=== PATIENT | female | born 1995 | race Caucasian/White ===

== ENCOUNTER 2018-10-23 16:14 | Emergency (ER) | payer BC ==
[~2018-10-23] VITALS: Ht 165.1 cm; Wt 74.8 kg
--- OUTSIDE RECORDS SUMMARY | 2018-10-23 16:16 | XMS REPORT | Encounter Summary ---
Author Organization Unknown Address [address] [place] [address] Phone [phone] Reason for Visit Medical Complaint Instructions 1. Common cold rapid strep group A, throat rapid flu (A+B) benzonatate 200 mg capsule Xyzal 5 mg tablet Discussion Note: None recorded. Patient educational handouts: No information available. Plan of Care Patient Instructions Start on Flonase 2 sprays each nostril daily x 5 days. If symptoms do not improve in 3-4days follow with fever, call clinic or see pcp. Reminders Provider Appointments None recorded. Lab Rapid Strep Group a, Throat 07/22/2016 [facility] Rapid Flu (A+B) 07/22/2016 [facility] Referral None recorded. Procedures None recorded. Surgeries None recorded. Imaging None recorded. Medications Name Start Date benzonatate 200 mg capsule Take 1 capsule 3 times a day by oral route as needed for cough. Implanon Xyzal 5 mg tablet Take 1 tablet every day by oral route at bedtime for drainage. Medications Administered None recorded. Vitals Height Weight BMI Blood Pressure 5 ft 6 in 166 lbs 26.8 110/60 Lab Results Date Name Result Description Value Range Status Rapid Strep Group a, Throat Result negative Swab Location Left and Right tonsillar pillars Rapid Flu (A+B) Influenza a negative Influenza B negative Allergies Name Reaction Severity Onset NKDA Problems Name Status Onset Date Source Common Cold Active Encounter Procedures None recorded. Vaccine List None recorded. Social History Smoking Status Never Smoker Past Encounters 07/22/2016 Common Cold Yasemin Branch, [employer]: [address] [place] [address], Ph. History of Present Illness Throat-Oral Complaint Reported By: Patient HPI: Location: throat. Quality: sore throat, congested, dry or hacking cough. Severity: moderate. Duration: 2 days. Onset/Timing: sudden. Context: no sick contacts, no foreign travel, non-smoker, allergies. Modifying factors: OTC medication. Associated Symptoms: no sputum production, no shortness of breath, no wheezing, no change in number of pillows needed to sleep at night, no sweats, no significant weight gain, no significant weight loss, no morning cough, no sore throat, no vomiting, no diarrhea, no rash, no nausea Review of Systems Basic Reported By: Patient Constitutional: Constitutional: no fever Eyes: Eyes: no eye complaints Ytye-Dtno-Ridpz-Throat: Ears: ear pain. Nose: nose/sinus problems. Mouth/Throat: no bleeding gums, no mouth complaints, no teeth problems, sore throat Cardiovascular: Cardiovascular: no chest pain, no shortness of breath, no known heart murmur Respiratory: Respiratory: no wheezing, no shortness of breath, cough Gastrointestinal: Gastrointestinal: no abdominal pain, no vomiting / diarrhea Genitourinary: Genitourinary: no urinary complaints, no discharge Musculoskeletal: Musculoskeletal: no muscle aches, no muscle weakness, no arthralgias/joint pain, no back pain Skin: Skin: no abnormal / changing mole, no jaundice, no rashes Neurologic: Neurologic: no loss of consciousness, no weakness, no numbness, no seizures, no dizziness, no headaches Physical Exam Adult Basic, Adult Female Complete, 14-21 Yr Females Constitutional: General Appearance: healthy-appearing, well-nourished, well-developed, overweight. Level of Distress: NAD. Ambulation: ambulating normally Psychiatric: Mental Status: active and alert, normal affect, normal mood. Orientation: to time, to place, to person Eyes: Lids and Conjunctivae: non-injected, no discharge, no pallor. Pupils: PERRLA, equal size, round, reactive to light. Corneas: grossly intact. EOM: EOMI, normal cover/uncover test. Lens: clear. Sclerae: non-icteric. Vision: acuity grossly intact Hnf-Jsvn-Hflwa-Throat: Ears: no lesions on external ear, no outer ear tenderness, EACs clear, TMs clear. Hearing: no hearing loss. Nose: no lesions on external nose, nares patent, no septal deviation, nasal passages clear, no sinus tenderness, nasal discharge--rhinorrhea; nasal turbinate inflamed. Lips, Teeth, and Gums: no mouth or lip ulcers, no bleeding gums, normal dentition. Oropharynx: moist mucous membranes, no exudates, tonsils not enlarged, erythema Neck: Neck: supple, trachea midline, no masses, FROM. Lymph Nodes: no cervical LAD, no supraclavicular LAD. Thyroid: no enlargement, non-tender, no nodules, no asymmetry Lungs: Respiratory effort: no dyspnea, no tachypnea, no use of accessory muscles, no intercostal retractions. Auscultation: breath sounds normal, clear to auscultation, no wheezing, no rales/crackles, no rhonchi, no retractions Cardiovascular: Heart Auscultation: RRR, no murmurs, no gallops, no rub. Neck vessels: no carotid bruits. Apical impulse: not displaced. Rate and rhythm: regular
--- OUTSIDE RECORDS SUMMARY | 2018-10-23 16:16 | XMS REPORT | Encounter Summary ---
Author Organization Unknown Address [address] [place] [address] Phone [phone] Reason for Visit Medical Complaint Instructions 1. Acute sinusitis sinusitis: care instructions Bromfed DM 2 mg-30 mg-10 mg/5 mL syrup Augmentin 875 mg-125 mg tablet 2. Feeling feverish rapid flu (A+B) 3. Pain in throat sore throat: care instructions rapid strep group A, throat Discussion Note: None recorded. Plan of Care Patient Instructions take bromfed as needed. it can cause drowsiness. do not drive will on this medication. follow up pcp maybe start on antibiotics in 4-5 days if not better. Reminders Provider Appointments None recorded. Lab Rapid Flu (A+B) 04/11/2017 [facility] Rapid Strep Group a, Throat 04/11/2017 [facility] Referral None recorded. Procedures None recorded. Surgeries None recorded. Imaging None recorded. Medications Name Start Date Augmentin 875 mg-125 mg tablet Take 1 tablet every 12 hours by oral route with meals for 10 days. Bromfed DM 2 mg-30 mg-10 mg/5 mL syrup Take 10 mL every 4 hours by oral route as needed. levonorgestrel-ethinyl estradiol 0.1 mg-20 mcg tablet TAKE 1 TABLET BY MOUTH EVERY DAY Medications Administered None recorded. Vitals Height Weight BMI Blood Pressure 5 ft 5 in 170 lbs 28.3 kg/m2 108/78 mm[Hg] Lab Results Date Name Specimen Result Interpretation Description Value Range Status Address Rapid Strep Group a, Throat Result negative [facility]: [address] [place] [address] Swab Location Left and Right tonsillar pillars [facility]: [address] [place] [address] Rapid Flu (A+B) Influenza a negative [facility]: [address] [place] [address] Influenza B negative [facility]: [address] [place] [address] Allergies Code Code System Name Reaction Severity Onset NKDA Problems Name Status Onset Date Source Common Cold Active Encounter Procedures None recorded. Vaccine List Vaccine Type influenza, injectable, quadrivalent 06/04/2016 Social History Smoking Status Never Smoker Past Encounters 04/11/2017 Acute Sinusitis; Feeling Feverish; Pain in Throat Seven Branch, [facility]: [address] [place] [address], Ph. History of Present Illness Kwxhe-Qznuueqoll-Dpkekoo Reported By: Patient HPI: Location: head/sinuses, throat. Quality: productive cough, sore throat, colored phlegm, nasal/sinus congestion. Duration: 5days. Severity: moderate. Onset/Timing: gradual. Context: no sick contacts, no foreign travel, non-smoker, allergies. Modifying factors: OTC medication. Associated Symptoms: no shortness of breath, no wheezing, no change in number of pillows needed to sleep at night, no sweats, no significant weight gain, no significant weight loss, no morning cough, no vomiting, no diarrhea, no rash, no nausea, no fever, no headache, green sputum, fatigue, sore throat, muscle aches Review of Systems:ROS as noted in the HPI Review of Systems Basic Reported By: Patient Physical Exam Adult Basic, Adult Female Complete, 14-21 Yr Females Reported By: Patient Constitutional: General Appearance: healthy-appearing, well-nourished, well-developed. Level of Distress: NAD. Ambulation: ambulating normally Psychiatric: Mental Status: active and alert Eyes: Lids and Conjunctivae: non-injected, no discharge Hdw-Bryz-Mmetd-Throat: Ears: no lesions on external ear, no outer ear tenderness, EACs clear, TMs clear, TM mobility normal. Hearing: no hearing loss. Nose: no lesions on external nose, sinus tenderness, nasal discharge--purulent; congestion. Lips, Teeth, and Gums: no mouth or lip ulcers. Oropharynx: moist mucous membranes, no erythema, no exudates, tonsils not enlarged Neck: Neck: trachea midline. Lymph Nodes: no cervical LAD Lungs: Respiratory effort: no dyspnea, no tachypnea, no use of accessory muscles, no intercostal retractions. Auscultation: breath sounds normal, clear to auscultation, no wheezing, no rales/crackles, no rhonchi, no retractions Cardiovascular: Heart Auscultation: RRR, no murmurs, no gallops, no rub. Rate and rhythm: regular
--- OUTSIDE RECORDS SUMMARY | 2018-10-23 16:16 | XMS REPORT | Encounter Summary ---
Author Organization Unknown Address [address] [place] [address] Phone [phone] Reason for Visit Medical Complaint Instructions 1. [...] Group a, Throat Result negative [facility]: [address] [place] [address] Swab Location Left and Right tonsillar pillars [facility]: [address] [place] [address] Rapid Flu (A+B) Influenza a negative [facility]: [address] [place] [address] Influenza B negative [facility]: [address] [place] [address] Allergies Code Code System Name Reaction Severity Onset NKDA Problems Name Status Onset Date Source Common Cold Active Encounter Procedures None recorded. Vaccine List Vaccine Type influenza, injectable, quadrivalent 06/04/2016 Social History Smoking Status Never Smoker Past Encounters 04/11/2017 Acute Sinusitis; Feeling Feverish; Pain in Throat Seven Branch, [facility]: [address] [place] [address], Ph. History of Present Illness [id number]-Tqrrzsg Reported By: Patient HPI: Location: head/sinuses, throat. [...] Eyes: Lids and Conjunctivae: non-injected, no discharge Qzo-Wajr-Ipyfc-Throat: Ears: no lesions on external ear, no [...]
--- OUTSIDE RECORDS SUMMARY | 2018-10-23 16:16 | XMS REPORT | Continuity of Care Document ---
Author Author [facility] Interface Address Unknown Phone Unavailable Problems Problem Status Onset Date Classification Date Reported Comments Source Acute sinusitis 04/11/2017 Diagnosis 04/11/2017 [facility] Feeling feverish 04/11/2017 Diagnosis 04/11/2017 [facility] Pain in throat 04/11/2017 Diagnosis 04/11/2017 [facility] Common cold 07/22/2016 Diagnosis 07/22/2016 [facility] Common Cold Problem 04/11/2017 [facility] Medications Medication Details Route Status Patient Instructions Ordering Provider Order Date Source Amoxicillin 875 MG / Clavulanate 125 MG Oral Tablet [Augmentin] Augmentin 875 mg-125 mg tablet Take 1 tablet every 12 hours by oral route with meals for 10 days. Active [facility] Brompheniramine Maleate 0.4 MG/ML / Dextromethorphan Hydrobromide 2 MG/ML / Pseudoephedrine Hydrochloride 6 MG/ML Oral Solution [Bromfed DM] Bromfed DM 2 mg-30 mg-10 mg/5 mL syrup Take 10 mL every 4 hours by oral route as needed. Active [facility] levonorgestrel-ethinyl estradiol 0.1 mg-20 mcg tablet levonorgestrel- ethinyl estradiol 0.1 mg-20 mcg tablet TAKE 1 TABLET BY MOUTH EVERY DAY Active [facility] benzonatate 200 MG Oral Capsule benzonatate 200 mg capsule Take 1 capsule 3 times a day by oral route as needed for cough. Active [facility] Implanon Implanon Active [facility] levocetirizine dihydrochloride 5 MG Oral Tablet [Xyzal] Xyzal 5 mg tablet Take 1 tablet every day by oral route at bedtime for drainage. Active [facility] Allergies, Adverse Reactions, Alerts Substance Category Reaction Severity Reaction type Status Date Reported Comments Source Immunizations Immunization Date Given Site Status Last Updated Comments Source influenza, injectable, quadrivalent 06/04/2016 completed [facility] Results Order Name Results Value Reference Range Date Interpretation Comments Source RESULT negative 04/11/2017 [facility] SWAB LOCATION Left and Right tonsillar pillars 04/11/2017 [facility] Influenza A negative 04/11/2017 [facility] Influenza B negative 04/11/2017 [facility] RESULT negative 07/22/2016 [facility] SWAB LOCATION Left and Right tonsillar pillars 07/22/2016 [facility] Influenza A negative 07/22/2016 [facility] Influenza B negative 07/22/2016 [facility] Vital Signs Vital Sign Value Date Comments Source Diastolic (mm Hg) 78 04/11/2017 [facility] Height 65 04/11/2017 [facility] Systolic (mm Hg) 108 04/11/2017 [facility] Weight 170 04/11/2017 [facility] Diastolic (mm Hg) 60 07/22/2016 [facility] Height 66 07/22/2016 [facility] Systolic (mm Hg) 110 07/22/2016 [facility] Weight 166 07/22/2016 [facility] Encounters Location Location Details Encounter Type Encounter Number Reason For Visit Attending Provider ADM Date DC Date Status Source [place] - [facility] - [id number] EFREN Hightower: [address] [place] [address], Ph. [id number] Yasemin Branch 07/22/2016 [facility] [place] - [facility] - [id number] Green-C: [address] [place] [address], Ph. [id number] Seven Branch 04/11/2017 [facility] [place] - [facility] - [id number] EFREN Ramirez-C: [address] [place] [address], Ph. [id number] Seven Branch 04/11/2017 [facility] Procedures Procedure Code Date Perfomer Comments Source
[2018-10-23 17:46] LABS: BILIRUBIN,URINE NEGATIVE (NEGATIVE); CLARITY,URINE SL CLOUDY (CLEAR); COLOR,URINE YELLOW (YELLOW); KETONES,URINE 1+ (NEGATIVE); LEUKOCYTE ESTERASE ,URINE NEGATIVE (NEGATIVE); NITRITE,URINE NEGATIVE (NEGATIVE); PREGNANCY TEST, URINE NEGATIVE (NEGATIVE); PROTEIN,URINE DIPSTICK NEGATIVE (NEGATIVE); URINE UROBILINOGEN 0.2 mg/dL (0.2 - 1)
[2018-10-23 17:55] LABS: BACTERIA,URINE MODERATE /HPF; EPITHELIAL CELLS,URINE MODERATE /LPF
[2018-10-23] MEDS ORDERED: SODIUM CHLORIDE 0.9% 1000ML 1,000 ML IV SCH (18:00)
[2018-10-23] MEDS ORDERED: ONDANSETRON HCL INJ 2MG/ML 2ML 2 MG/ML VIAL IV NR (18:00)
[2018-10-23] MEDS ORDERED: MORPHINE SULFATE INJ 4 MG/ML INJ 1ML IV NR ×2 (18:00→19:15)
[2018-10-23 18:01] LABS: BASOPHILS # (AUTO) 0.1 (0.0-0.1); BASOPHILS % 0.4 % (0.0-1.0); EOSINOPHILS % 0.2 % (0.0-6.0); HEMATOCRIT 43.6 % (34.2-44.1); HEMOGLOBIN 14.5 g/dL (12.0-16.0); LYMPHOCYTES # (AUTO) 2.5 (1.0-3.2); LYMPHOCYTES % 17.6 % (18.0-39.1); MEAN CORPUSCULAR HEMOGLOBIN 30.1 pg (28-32); MEAN CORPUSCULAR HGB CONC 33.3 g/dL (31-35); MEAN CORPUSCULAR VOLUME 90.5 fL (81-99); MONOCYTES # (AUTO) 0.9 (0.2-0.8); MONOCYTES % 6.3 % (4.4-11.3); NEUTROPHILS # (AUTO) 10.7 (2.1-6.9); NEUTROPHILS % 75.1 % (38.7-80.0); PLATELET COUNT 313 x10e3/uL (140-360); RED BLOOD COUNT 4.82 x10e6/uL (3.6-5.1); RED CELL DISTRIBUTION WIDTH 13.2 % (11.7-14.4)
[2018-10-23 18:17] LABS: ALANINE AMINOTRANSFERASE 55 IU/L (0-55); ALBUMIN 4.6 g/dL (3.5-5.0); ALBUMIN/GLOBULIN RATIO 1.7 (0.8-2.0); ALKALINE PHOSPHATASE 55 IU/L (40-150); ANION GAP 21.5 mmol/L (8-16); BLOOD UREA NITROGEN 13 mg/dL (7-26); BUN/CREATININE RATIO 15 (6-25); CALCIUM 9.9 mg/dL (8.4-10.2); CARBON DIOXIDE 21 mmol/L (22-29); CHLORIDE 100 mmol/L (98-107); CREATININE, SERUM 0.87 mg/dL (0.57-1.11); EST GLOMERULAR FILTRATION RATE > 60 ML/MIN (60-); GLUCOSE 137 mg/dL (74-118); POTASSIUM 3.5 mmol/L (3.5-5.1); SODIUM 139 mmol/L (136-145)
[2018-10-23] MEDS ORDERED: METOPROLOL TARTRATE INJ 1 MG/ML VIAL ONE (18:31)
[2018-10-23] MEDS ORDERED: MORPHINE SULFATE 2 MG/ML SYR 1ML IV STA (19:08)
--- NOTE | 2018-10-23 19:29 | Diagnostic Imaging Report ---
EXAM: CT Abdomen and Pelvis WITH contrast INDICATION: ^RLQ pain, e/o appy COMPARISON: None. TECHNIQUE: Abdomen and pelvis were scanned utilizing a multidetector helical scanner from the lung base to the pubic symphysis after administration of IV contrast. Coronal and sagittal reformations were obtained. Routine protocol was performed. Scan was performed when during portal venous phase. IV CONTRAST: 100 mL of Isovue 370 ORAL CONTRAST: Water COMPLICATIONS: None RADIATION DOSE: Total DLP: 251.47 mGy*cm Estimated effective dose: (DLP x 0.015 x size factor) mSv CTDIvol has been reviewed. It is below the limits set by the Radiation Protocol Committee (RPC). FINDINGS: LINES and TUBES: None. LOWER THORAX: Unremarkable HEPATOBILIARY: No focal hepatic lesions. No biliary ductal dilation. GALLBLADDER: No radio-opaque stones or sludge. No wall thickening. SPLEEN: No splenomegaly. PANCREAS: No focal masses or ductal dilatation. ADRENALS: No adrenal nodules KIDNEYS/URETERS: Kidneys enhance symmetrically. No hydronephrosis. No cystic or solid mass lesions. No stones. GI TRACT: Colon is decompressed. Mild wall thickening of small bowel loops in the deep pelvis especially the ileum as it crosses posterior to the cervix (series 2, image 71). Appendix is normal. PELVIC ORGANS/BLADDER: Unremarkable. LYMPH NODES: No lymphadenopathy. VESSELS: Unremarkable. PERITONEUM / RETROPERITONEUM: Small amount of free fluid in the cul-de-sac. BONES: Unremarkable. SOFT TISSUES: Unremarkable. IMPRESSION: 1. Normal appendix. 2. Trace free fluid, likely physiologic. 3. Diffuse colonic decompression. There is however small bowel loop wall thickening and enhancement especially the terminal ileum. This may represent enteritis. Correlate for possible Crohn's disease. Signed by: Dr. Enrrique Dumont M.D. on 10/23/2018 7:26 PM
[2018-10-23] MEDS ORDERED: CIPRO500 MG PO (20:11)
[2018-10-23] MEDS ORDERED: ZOFRAN4 MG SL (20:11)
[2018-10-23] MEDS ORDERED: FLAGYL500 MG PO (20:11)
[2018-10-23] MEDS ORDERED: SODIUM CHLORIDE 0.9% 50ML 50 ML ONE (22:37)
[2018-10-23] MEDS ORDERED: IOPAMIDOL 370 MG/ML 200 ML INFUS..BTL INJ ONE (22:38)
== END 2018-10-23 20:50 | disposition home or self-care (01) ==
LOC: ER 16:14
DX: R10.31 Right lower quadrant pain (principal); R11.0 Nausea; E86.0 Dehydration; K52.9 Noninfective gastroenteritis and colitis, unspecified
CPT/HCPCS: 36415; 74177; 80053; 81001; 81025; 85025; 99284; J2270; J2405; J7030; Q9967